=== PATIENT | female | born 1950 | race Two or more races ===

== ENCOUNTER 2019-11-21 11:00 | Inpatient (IN) | payer OTHER ==
[~2019-11-21] VITALS: Ht 157.5 cm; Wt 86.2 kg
[2019-11-21] MEDS ORDERED: HYDRALAZINE HCL25 MG PO (14:20)
[2019-11-21] MEDS ORDERED: OMEPRAZOLE MAGN20 MG PO (14:21)
[2019-11-21] MEDS ORDERED: ASPIR 8181 MG PO (14:21)
[2019-11-21] MEDS ORDERED: ENALAPRIL MALE2.5 MG PO (14:21)
[2019-11-28] MEDS ORDERED: ENALAPRIL MALEA20 MG PO (10:22)
[2019-11-28] MEDS ORDERED: ATORVASTATIN CA40 MG PO (10:22)
[2019-11-28] MEDS ORDERED: OMEPRAZOLE20 MG PO (10:23)
[2019-11-28] MEDS ORDERED: HYDROCHLOROTHIA25 MG PO (10:23)
[2019-11-30] MEDS ORDERED: OXYC1TAB9 PO (07:49)
[2019-11-30] MEDS ORDERED: INTEGRA PLUS C1 EACH PO (07:49)
[2019-11-30] MEDS ORDERED: XARELTO10 MG PO (07:49)
== END 2019-11-30 17:55 | DRG 470 ==
LOC: SURG 11-28 05:14 → O/R 11-28 05:14 → SURH 11-28 07:00 → SURG 11-28 11:12
PROVIDERS: ADMIT Orthopaedic Surgery Sports Medicine; ATTEND Orthopaedic Surgery Sports Medicine
PROC: 0SRD0J9 Replacement of Left Knee Joint with Synthetic Substitute, Cemented, Open Approach (ICD-10-PCS; principal; 2019-11-28 07:00)
DX: M17.12 Unilateral primary osteoarthritis, left knee (principal); I10 Essential (primary) hypertension; E11.9 Type 2 diabetes mellitus without complications; Z20.828 Contact with and (suspected) exposure to other viral communicable diseases